=== PATIENT | female | born 1980 | race Caucasian/White ===

== ENCOUNTER 2017-01-13 00:15 | Emergency (ER) | payer OTHER ==
[~2017-01-13] VITALS: Ht 160 cm; Wt 56.7 kg
--- NOTE | 2017-01-13 00:30 | NUR ---
PT BIB RA C/O RECURRENT SZ ACTIVITY ALL DAY TODAY, OF VARYING TYPES. PT REPORTS SHE HAS BEEN TAKING ALL OF HER ANTI-SEIZURE MEDS. NO SZ ACTIVITY NOTED. PT DOES NOT APPEAR POST-ICTAL. A/OX4. ABLE TO FOLLOW COMMANDS. NO LOSS OF CONTINENCE. NO HEAD TRAUMA. NO NEURO DEFICITS NOTED. RESP EVEN UNLABORED. IN ER BED 12.
--- NOTE | 2017-01-13 01:20 | NUR ---
PT REPORTS THAT SHE HAS NOT TAKEN HER NIGHTLY DOSE OF DEPAKOTE 250MG AND TOPOMAX 150MG. MD NOTIFIED.
--- NOTE | 2017-01-13 02:04 | NUR ---
RESTING QUIETLY, NAD NOTED. NO SZ ACTIVITY NOTED. REPORT GIVEN TO BERNARD FRANCES RN FOR JARON
--- NOTE | 2017-01-13 02:20 | NUR ---
Patient discharged to home in stable condition. Written and verbal after care instructions given. Patient verbalizes understanding of instruction. IV from rescue removed. Catheter intact and site benign. Pressure and 4x4 applied to site. No bleeding noted. Ambulatory with steady gait.
[2017-01-13 02:21] VITALS: BP 129/70
== END 2017-01-13 02:23 | disposition home or self-care (01) ==
LOC: ER 00:20
DX: R56.9 Unspecified convulsions (principal); Z88.8 Allergy status to other drugs, medicaments and biological substances
CPT/HCPCS: 82962-TC; A4606; Z7610

== ENCOUNTER 2018-04-24 23:27 | Emergency (ER) | payer SELFPAY ==
[~2018-04-24] VITALS: Ht 165.1 cm; Wt 59.0 kg
--- NOTE | 2018-04-24 23:27 | NUR ---
bib [id number]; Seizure, witnessed by nurse A/OX2. VSS NO ACUTE DISTRESS AT THIS TIME. WILL CONTINUE TO MONITOR FOR ANY CHANGES DURING THE SHIFT.
--- NOTE | 2018-04-24 23:28 | NUR ---
ER AT BEDSIDE
[2018-04-25 00:30] LABS: BASOPHILS % (AUTO) 0.2 % (0.0-2.0); EOSINOPHILS % (AUTO) 1.3 % (0.0-6.0); HEMATOCRIT 39 % (33-45); HEMOGLOBIN 13.3 g/dL (11.5-14.8); LYMPHOCYTES # (AUTO) 2.5 /CMM (0.8-4.8); LYMPHOCYTES % (AUTO) 29.8 % (20.0-44.0); MEAN CORPUSCULAR HEMOGLOBIN 32 PG (26.0-33.0); MEAN CORPUSCULAR HGB CONC 34 g/dl (31.0-36.0); MEAN CORPUSCULAR VOLUME 94 fL (82-100); MONOCYTES # (AUTO) 0.6 /CMM (0.1-1.30); MONOCYTES % (AUTO) 7.8 % (2.0-12.0); NEUTROPHILS % (AUTO) 60.9 % (43.0-81.0); PLATELET COUNT (AUTO) 274 /CMM (150-450); RDW COEFFICIENT OF VARIATION 12.1 (11.5-15.0); RED BLOOD CELL COUNT(AUTO) 4.14 MIL/uL (4.0-5.2); WHITE BLOOD COUNT (AUTO) 8.3 K/uL (4.3-11.0)
[2018-04-25 00:41] LABS: CALCIUM, SERUM 8.5 mg/dL (8.5-10.1); CREATININE 0.7 mg/dL (0.6-1.3); POTASSIUM 4.1 mmol/L (3.5-5.1)
[2018-04-25 00:46] LABS: BILIRUBIN,TOTAL 0.3 mg/dL (0.2-1.0); TOTAL PROTEIN, SERUM 7.4 g/dL (6.4-8.2)
[2018-04-25 00:54] VITALS: BP 129/79
== END 2018-04-25 00:55 | disposition home or self-care (01) ==
LOC: ER 23:27
DX: R56.9 Unspecified convulsions (principal); Z88.8 Allergy status to other drugs, medicaments and biological substances
CPT/HCPCS: 36415; 80048-TC; 80076-TC; 85025-TC

== ENCOUNTER 2018-06-21 21:25 | Emergency (ER) | payer SELFPAY ==
[~2018-06-21] VITALS: Ht 170.2 cm; Wt 63.5 kg
--- NOTE | 2018-06-21 21:25 | NUR ---
PT BB RA WITH MOTHER C/O "WEAKNESS, DIZZINESS, AND A HEADACHE X2 HOURS. FEELS LIKE A FOCAL SEIZURE MIGHT OCCUR".
--- NOTE | 2018-06-21 21:26 | NUR ---
ER MD FRY AT BEDSIDE
[2018-06-21 21:36] VITALS: BP 121/74
== END 2018-06-21 21:56 | disposition home or self-care (01) ==
LOC: ER 21:27
DX: R56.9 Unspecified convulsions (principal); Z88.8 Allergy status to other drugs, medicaments and biological substances; F10.10 Alcohol abuse, uncomplicated; Y90.9 Presence of alcohol in blood, level not specified
CPT/HCPCS: 99283; A4606; Z7610

== ENCOUNTER 2018-09-21 02:07 | Emergency (ER) | payer OTHER ==
[~2018-09-21] VITALS: Ht 170.2 cm; Wt 61.2 kg
[2018-09-21 02:13] VITALS: BP 150/89
== END 2018-09-21 02:33 | disposition home or self-care (01) ==
LOC: ER 02:09
DX: R56.9 Unspecified convulsions (principal); S00.83XA Contusion of other part of head, initial encounter; Z60.2 Problems related to living alone; Z88.8 Allergy status to other drugs, medicaments and biological substances; X58.XXXA Exposure to other specified factors, initial encounter; Y93.89 Activity, other specified; Y92.89 Other specified places as the place of occurrence of the external cause; Y99.8 Other external cause status
CPT/HCPCS: Z7502

== ENCOUNTER 2018-09-27 20:56 | Emergency (ER) | payer OTHER ==
[~2018-09-27] VITALS: Ht 170.2 cm; Wt 61.2 kg
[2018-09-27 21:09] VITALS: BP 148/85
--- NOTE | 2018-09-27 21:35 | NUR ---
IV removed. Catheter intact and site benign. Pressure and 4x4 applied to site. No bleeding noted. PT WALKED OUT REFUSING TO BE SEEN AND REFUSING TO SIGN AMA PAERWORK. PT WALKED WITH STEADY GAIT NOTED FOLLOWED BY CAREGIVER. MD MADE AWARE. SHIPPING SUPERVISOR MADE AWARE
== END 2018-09-27 21:37 | disposition left against medical advice (07) ==
LOC: ER 20:58
DX: Z53.21 Procedure and treatment not carried out due to patient leaving prior to being seen by health care provider (principal); R56.9 Unspecified convulsions; R51 Headache
CPT/HCPCS: A4606; Z7610

== ENCOUNTER 2018-09-28 23:11 | Emergency (ER) | payer OTHER ==
[~2018-09-28] VITALS: Ht 167.6 cm; Wt 68.5 kg
[2018-09-28 23:11] VITALS: BP 132/65
--- NOTE | 2018-09-28 23:49 | NUR ---
PT REFUSED ALL ORDERS; PT ELOPED, PT LEFT IN STABLE CONDITON, AMBULATORY WITH STEADY GAIT
== END 2018-09-28 23:52 | disposition left against medical advice (07) ==
LOC: ER 23:12
DX: G40.909 Epilepsy, unspecified, not intractable, without status epilepticus (principal); Z88.8 Allergy status to other drugs, medicaments and biological substances; Z60.2 Problems related to living alone
CPT/HCPCS: 99283; A4606; Z7610

== ENCOUNTER 2018-10-02 22:24 | Emergency (ER) | payer OTHER ==
[~2018-10-02] VITALS: Ht 172.7 cm; Wt 70.3 kg
--- NOTE | 2018-10-02 22:50 | NUR ---
[id number] FROM HOME C/C SEIZURE 30MINS FRONT END DEVELOPER. PER EMS PT WAS NOT POSTICTAL.HX OF SEIZURES.CAREGIVER STATES PT "WAS WALKING WHEN SEIZING". A/O X3 WITH CAREGIVER AT BEDSIDE. NO C/O PAIN AT THIS TIME. NOTED WITH LIGHT SENSITIVITY. VSS WNL. PT PLACED ON MONITOR. ON ROOM AIR AND SATURATING WELL. AWAITING MD DALEY.
[2018-10-02] MEDS ORDERED: busPIRone 5 MG TABLET ONE (23:49)
--- NOTE | 2018-10-03 00:02 | NUR ---
MD AT BEDSIDE WITH PT HAVING FOCAL SEIZURES. PT NOTED AGITATED, ANXIOUS AND YELLING. MD ORDERED BUSPAR 5MG PO.
[2018-10-03] MEDS ORDERED: busPIRone 5 MG TABLET ONE (00:04)
[2018-10-03] MEDS ORDERED: busPIRone 5 MG TABLET PO ONE ×2 (00:30)
[2018-10-03 00:57] VITALS: BP 135/75
== END 2018-10-03 00:58 | disposition home or self-care (01) ==
LOC: ER 22:26
DX: R56.9 Unspecified convulsions (principal); Z88.8 Allergy status to other drugs, medicaments and biological substances; Z60.2 Problems related to living alone
CPT/HCPCS: 99283; A4606; Z7610

== ENCOUNTER 2018-10-17 07:34 | Emergency (ER) | payer OTHER ==
[~2018-10-17] VITALS: Ht 170.2 cm; Wt 74.8 kg
--- NOTE | 2018-10-17 07:39 | NUR ---
DEO HAD A FOCAL SEIZURE THIS MORNING AROUND 640AM, TO ER BED 3, HOOKED TO MONITOR, CHANGED TO W, AWAITING MD DALEY.
--- NOTE | 2018-10-17 07:43 | NUR ---
LABS DRAWNED AND SENT TO LAB.
--- NOTE | 2018-10-17 07:50 | NUR ---
DR. COPELAND AT BEDSIDE FOR EVAL.
[2018-10-17] MEDS ORDERED: busPIRone 5 MG TABLET ONE (08:06)
[2018-10-17] MEDS ORDERED: busPIRone 5 MG TABLET PO ONE (08:30)
[2018-10-17] MEDS ORDERED: IV NS 0.9% 1,000 ML BAG IV ONE (08:30)
[2018-10-17 08:41] LABS: BASOPHILS # (AUTO) 0.1 /CMM (0.0-0.2); BASOPHILS % (AUTO) 0.8 % (0.0-2.0); EOSINOPHILS % (AUTO) 3.4 % (0.0-6.0); HEMATOCRIT 40 % (33-45); HEMOGLOBIN 13.2 g/dL (11.5-14.8); LYMPHOCYTES # (AUTO) 3.1 /CMM (0.8-4.8); LYMPHOCYTES % (AUTO) 46.6 % (20.0-44.0); MEAN CORPUSCULAR HGB CONC 33 g/dl (31.0-36.0); MEAN CORPUSCULAR VOLUME 94 fL (82-100); MONOCYTES # (AUTO) 0.6 /CMM (0.1-1.30); MONOCYTES % (AUTO) 9.4 % (2.0-12.0); NEUTROPHILS # (AUTO) 2.7 /CMM (1.8-8.9); NEUTROPHILS % (AUTO) 39.8 % (43.0-81.0); PLATELET COUNT (AUTO) 267 /CMM (150-450); RED BLOOD CELL COUNT(AUTO) 4.22 MIL/uL (4.0-5.2); WHITE BLOOD COUNT (AUTO) 6.7 K/uL (4.3-11.0)
--- NOTE | 2018-10-17 08:41 | NUR ---
[facility] [place]
[2018-10-17 08:48] LABS: CALCIUM, SERUM 8.6 mg/dL (8.5-10.1); CREATININE 0.7 mg/dL (0.6-1.3); POTASSIUM 4.2 mmol/L (3.5-5.1)
[2018-10-17] MEDS ORDERED: KETOROLAC TROMETHAMINE INJ 30 MG/ML VIAL IV ONE (09:30)
[2018-10-17] MEDS ORDERED: KETOROLAC TROMETHAMINE INJ 30 MG/ML VIAL ONE (09:40)
--- NOTE | 2018-10-17 10:58 | NUR ---
IV removed. Catheter intact and site benign. Pressure and 4x4 applied to site. No bleeding noted. Patient discharged to home with CHAIN TENDER in stable condition. Written and verbal after care instructions given. Patient verbalizes understanding of instruction.
[2018-10-17 11:18] VITALS: BP 102/62
== END 2018-10-17 11:19 | disposition home or self-care (01) ==
LOC: ER 07:40
DX: R56.9 Unspecified convulsions (principal); F32.9 Major depressive disorder, single episode, unspecified; Z88.8 Allergy status to other drugs, medicaments and biological substances; Z60.2 Problems related to living alone
CPT/HCPCS: 36415; 70450; 80048; 84703; 85025; 96374; 99284; A4606; J1885; J7030

== ENCOUNTER 2018-10-28 13:07 | Emergency (ER) | payer OTHER ==
[~2018-10-28] VITALS: Ht 170.2 cm; Wt 67.1 kg
--- NOTE | 2018-10-28 13:08 | NUR ---
BIB RA 102 FROM HOME, FOCAL SEIZURE AFTER SHE C/O ABDOMINAL CRAMPING, TO ER BED 4, HOOKED TO MONITOR, CHANGED TO GOWBg, AWAITING MD DALEY
--- NOTE | 2018-10-28 13:10 | NUR ---
DR HAJI AT BEDSIDE
[2018-10-28 13:36] LABS: BASOPHILS # (AUTO) 0.1 /CMM (0.0-0.2); BASOPHILS % (AUTO) 0.8 % (0.0-2.0); EOSINOPHILS % (AUTO) 1.2 % (0.0-6.0); HEMATOCRIT 42 % (33-45); HEMOGLOBIN 13.7 g/dL (11.5-14.8); LYMPHOCYTES # (AUTO) 1.9 /CMM (0.8-4.8); LYMPHOCYTES % (AUTO) 16.1 % (20.0-44.0); MEAN CORPUSCULAR HGB CONC 33 g/dl (31.0-36.0); MEAN CORPUSCULAR VOLUME 95 fL (82-100); MONOCYTES # (AUTO) 0.5 /CMM (0.1-1.30); MONOCYTES % (AUTO) 4.6 % (2.0-12.0); NEUTROPHILS # (AUTO) 9.2 /CMM (1.8-8.9); NEUTROPHILS % (AUTO) 77.3 % (43.0-81.0); PLATELET COUNT (AUTO) 286 /CMM (150-450); RED BLOOD CELL COUNT(AUTO) 4.38 MIL/uL (4.0-5.2); WHITE BLOOD COUNT (AUTO) 11.8 K/uL (4.3-11.0)
[2018-10-28 14:05] LABS: BILIRUBIN,DIRECT 0.1 mg/dL (0.0-0.2); BILIRUBIN,TOTAL 0.3 mg/dL (0.2-1.0); CALCIUM, SERUM 9.2 mg/dL (8.5-10.1); CREATININE 0.8 mg/dL (0.6-1.3); POTASSIUM 4.1 mmol/L (3.5-5.1); TOTAL PROTEIN, SERUM 7.3 g/dL (6.4-8.2)
[2018-10-28] MEDS ORDERED: KETOROLAC TROMETHAMINE INJ 30 MG/ML VIAL ONE (14:21)
[2018-10-28] MEDS ORDERED: KETOROLAC TROMETHAMINE INJ 30 MG/ML VIAL IV ONE (14:30)
--- NOTE | 2018-10-28 14:58 | NUR ---
IV removed. Catheter intact and site benign. Pressure and 4x4 applied to site. No bleeding noted.Patient discharged to home in stable condition. Written and verbal after care instructions given. Patient verbalizes understanding of instruction.
[2018-10-28 15:00] VITALS: BP 102/57
== END 2018-10-28 15:01 | disposition home or self-care (01) ==
LOC: ER 13:11
DX: G40.909 Epilepsy, unspecified, not intractable, without status epilepticus (principal); G44.89 Other headache syndrome; F32.9 Major depressive disorder, single episode, unspecified; Z88.8 Allergy status to other drugs, medicaments and biological substances; Z88.1 Allergy status to other antibiotic agents; Z60.2 Problems related to living alone
CPT/HCPCS: 36415; 80048; 80076; 84702; 85025; 96374; 99283; A4606; J1885

== ENCOUNTER 2019-04-11 22:09 | Emergency (ER) | payer BC, OTHER ==
[~2019-04-11] VITALS: Ht 167.6 cm; Wt 65.8 kg
[2019-04-11 22:18] VITALS: BP 97/65
--- NOTE | 2019-04-11 22:18 | NUR ---
TO BED 4 BIB PARAMEDICS C/O WITNESSED SEIZURE 10-15MIN. VERSED 5MG GIVEN BY EMS FUR TRIMMING MACHINE OPERATOR. RECEIVED PT AAOX4 NO ACUTE DISTRESS NOTED, RESP EVEN AND UNLABORED, PUPILS PERRLA, PT ABLE TO MOVE ALL EXTREMITIES WELL WITH BILATERAL EQUAL SENIOR INTERNAL AUDITOR. NO ORAL TRAUMA NOTED, NO URINARY OR BOWEL INCONTINENCE NOTED. PLACE PT ON SEIZURE PRECAUTION WITH PADDED SIDERAILS. PENDING ER MD DALEY.
--- NOTE | 2019-04-11 22:23 | NUR ---
PT CAREGIVER AT BEDSIDE TO TAKE PT HOME.
--- NOTE | 2019-04-11 22:49 | NUR ---
Pt states "there's nothing that the doctor can do for me, it would be a waste of time. I am going to follow up with my doctor at [facility] that manages my seizure". attempted to convince pt to qait for ER MD carlin but pt continued to refuse and woud like to leave AMA. pt aaox4 no acute distress noted, resp even and unlabored.
--- NOTE | 2019-04-11 22:53 | NUR ---
Patient does not wish to proceed with medical care and wants to sign out AMA without being seen by ER MD. Patient given information related to possible complications, up to and including , which could occur as a result of leaving the hospital at this time. Patient verbalizes understanding of risks involved due to leaving against medical advice. Patient has signed AMA form. Pt aaox4 no acute distress noted, resp even and unlabored. pt caregiver at bedside to take pt home.
== END 2019-04-11 23:04 | disposition left against medical advice (07) ==
LOC: ER 22:09
DX: R56.9 Unspecified convulsions (principal); Z53.21 Procedure and treatment not carried out due to patient leaving prior to being seen by health care provider

== ENCOUNTER 2019-10-14 00:18 | Emergency (ER) | payer BC ==
[~2019-10-14] VITALS: Ht 167.6 cm; Wt 65.8 kg
--- NOTE | 2019-10-14 01:50 | NUR ---
SEEN AND RE-EVALUATED BY .
--- NOTE | 2019-10-14 02:07 | NUR ---
Patient discharged to home in stable condition. Written and verbal after care instructions given. Patient verbalizes understanding of instruction.
[2019-10-14 02:08] VITALS: BP 114/76
--- NOTE | 2019-10-14 02:09 | NUR ---
Patient is ambulatory with a steady gait.
== END 2019-10-14 02:09 | disposition home or self-care (01) ==
LOC: ER 00:20
DX: G40.909 Epilepsy, unspecified, not intractable, without status epilepticus (principal); F32.9 Major depressive disorder, single episode, unspecified; F10.10 Alcohol abuse, uncomplicated; Y90.9 Presence of alcohol in blood, level not specified; Z60.2 Problems related to living alone; Z88.8 Allergy status to other drugs, medicaments and biological substances

== ENCOUNTER 2021-02-07 02:18 | Emergency (ER) | payer BC ==
[~2021-02-07] VITALS: Ht 167.6 cm; Wt 65.8 kg
--- NOTE | 2021-02-07 02:18 | NUR ---
BIBEMS FROM HOME C/O WITNESSED SEIZURE PER EMS REPPORT. PT POST ICTAL UPON ARRIVAL. (+) BOWEL & BLADDER INCONTINENCE. NOTED HEMATOMA TO BUE., PT TO BED 4, PLACED ON MONITOR, NOT IN ACUTE DISTRESS, NO SOB. VSS ,PENDING ER PROVDER EVAL
--- NOTE | 2021-02-07 02:42 | NUR ---
PT APPEARS MORE ALERT NOW, CALM AND COOPERATIVE WITH STAFF. PATIENT STATES SHE GETS FREQ SEIZURES AND HX OF TBI; AND CURRENTLY SEEING A SPECIALIST @[facility].
--- NOTE | 2021-02-07 03:00 | NUR ---
Patient does not wish to proceed with medical care recommended by Dr. Beverly. Patient given information related to possible complications, up to and including , which could occur as a result of leaving the hospital at this time. Patient verbalizes understanding of risks involved due to leaving against medical advice. Patient has signed AMA form.
[2021-02-07 03:06] LABS: CALCIUM, SERUM 8.7 mg/dL (8.5-10.1); CREATININE 0.8 mg/dL (0.6-1.3); POTASSIUM 3.7 mmol/L (3.5-5.1)
[2021-02-07 03:12] LABS: BASOPHILS # (AUTO) 0.1 /CMM (0.0-0.2); BASOPHILS % (AUTO) 0.8 % (0.0-2.0); EOSINOPHILS % (AUTO) 1.4 % (0.0-6.0); HEMATOCRIT 38 % (33-45); HEMOGLOBIN 12.4 g/dL (11.5-14.8); LYMPHOCYTES # (AUTO) 2.5 /CMM (0.8-4.8); LYMPHOCYTES % (AUTO) 33.7 % (20.0-44.0); MEAN CORPUSCULAR HGB CONC 33 g/dl (31.0-36.0); MEAN CORPUSCULAR VOLUME 93 fL (82-100); MONOCYTES # (AUTO) 0.7 /CMM (0.1-1.30); MONOCYTES % (AUTO) 9.8 % (2.0-12.0); NEUTROPHILS # (AUTO) 4.1 /CMM (1.8-8.9); NEUTROPHILS % (AUTO) 54.3 % (43.0-81.0); PLATELET COUNT (AUTO) 351 /CMM (150-450); RED BLOOD CELL COUNT(AUTO) 4.06 MIL/uL (4.0-5.2); WHITE BLOOD COUNT (AUTO) 7.5 K/uL (4.3-11.0)
[2021-02-07 03:13] LABS: ALBUMIN 3.9 g/dL (3.4-5.0); BILIRUBIN,DIRECT 0.1 mg/dL (0.0-0.2); BILIRUBIN,TOTAL 0.2 mg/dL (0.2-1.0); TOTAL PROTEIN, SERUM 7.4 g/dL (6.4-8.2)
[2021-02-07 04:59] VITALS: BP 101/70
== END 2021-02-07 03:00 | disposition left against medical advice (07) ==
LOC: ER 02:20
DX: G40.909 Epilepsy, unspecified, not intractable, without status epilepticus (principal); F32.9 Major depressive disorder, single episode, unspecified; Z88.2 Allergy status to sulfonamides; Z88.8 Allergy status to other drugs, medicaments and biological substances; Z88.1 Allergy status to other antibiotic agents; Z60.2 Problems related to living alone
CPT/HCPCS: 36415; 80048-TC; 80076-TC; 85025-TC; G0480

== ENCOUNTER 2021-10-12 16:56 | Emergency (ER) | payer BC ==
--- NOTE | 2021-10-12 17:15 | NUR ---
PT NOT TRIAGED. LEFT DEALER ACCOUNT MANAGER GURNEY.
== END 2021-10-12 17:23 | disposition left against medical advice (07) ==
LOC: ER 16:59
DX: Z53.21 Procedure and treatment not carried out due to patient leaving prior to being seen by health care provider (principal)